=== PATIENT | female | born 1945 | race Caucasian/White ===

== ENCOUNTER 2018-07-15 21:04 | Observation (INO) ==
--- NOTE | 2018-07-16 00:08 | Internal Med History&Physical ---
<Fatoumata Cee N - Last Filed: 07/16/18 02:21> Date of Encounter: 07/16/18 Time of Encounter: 00:08 Internal Medicine - H&P: HPI Chief complaint: GI bleeding Admitted From: Hospital to Hospital Transfer History of present illness: Ms. Balderrama is a 72 year old female with a history of hypertension, diabetes, hyperlipidemia, breast cancer, atrial fibrillation, and arthritis. She arrived at [facility] as a transfer from [facility] due to acute GI bleed. Patient reports that she noticed the bleeding last night, after she had a bowel movement. She states that her bowel movement was firm, but normal for her. She says that when she returned to the bathroom a few hours later, she had blood "all over me". She presented to the ED when the bleeding continued and occurred in the absence of a bowel movement. She denies any prior similar episodes. She has had external hemorrhoids and has experienced some bleeding with those in the past; however, she states that this bleeding is different. She reports recently going to the bathroom and having a "big glob" of material from her rectum. Laboratory studies performed at [facility] demonstrated Hgb/Hct of 13.9/40.8. Patient was found to have a supratherapeutic INR at 3.47. Stool hemoccult was positive for blood. CT of the abdomen and pelvis demonstrated previous granulomatous infectious disease, surgical absence of gallbladder, and atherosclerosis. Patient was transferred to [facility] for further evaluation and management. ROS is positive for intermittent epigastric pain and nausea over the last few months; however, patient attributes this to having recently started alendronate. She states that it improves after eating. She denies any shortness of breath, chest pain, palpitations, abdominal pain, change in bowel habits, or rectal pain. Patient was seen and evaluated at the bedside. She reports feeling weak and dizzy, which she attributes to not having eaten since 2:30pm. She also reports a slight headache. She reports that she is still having active bleeding from her rectum, but is denies any pain or discomfort associated with this. She denies any other complaints or concerns at this time. Past Med Surg Social Fam HX - Past Medical History Source: patient Medical history: arthritis, atrial fibrillation, cancer (Breast cancer), diabetes, hyperlipidemia, hypertension - Past Surgical History Surgical History: , cancer surgery, cataract, cholecystectomy, pacemaker - Family History Father Hx Family Cardiac Disorders: Yes Hx Family Cancer: Yes (Prostate) Sister Hx Family Endocrine Disorder: Yes (Diabetes) Daughter Living Status: Age at : 43 Hx Family Cancer: Yes (Breast cancer) Internal Medicine - H&P: Meds Acetaminophen w/Cod 300-30 mg [Tylenol w/Codeine #3] 1 each PO BID 07/16/18 [History] Alendronate Sodium [Fosamax] 70 mg PO QWEEK 07/16/18 [History] Aspirin 81 mg PO DAILY 07/16/18 [History] Calcium Carbonate/Vitamin D3 [Calcium 600-Vit D3 800 Tablet] 1 each PO BID 07/16/18 [History] Fluticasone Propionate Nasal [Flonase] 1 spray DAILY 07/16/18 [History] Gemfibrozil 600 mg PO BID 07/16/18 [History] Lovastatin 80 mg PO QPM 07/16/18 [History] Potassium Chloride 10 meq PO BID 07/16/18 [History] Triamterene/HCTZ 37.5/25mg [Dyazide] 1 each PO DAILY 07/16/18 [History] Warfarin Sodium 5 mg PO 07/16/18 [History] Allergy/AdvReac Type Severity Reaction Status Date / Time adhesive tape Allergy Unknown See Verified 07/16/18 01:33 Comments celecoxib [From Celebrex] AdvReac Unknown See Verified 07/16/18 01:34 Comments simvastatin [From Zocor] AdvReac Unknown See Verified 07/16/18 01:34 Comments All Systems PM: A 10-system review of systems was performed and is negative for pertinent findings except as documented above in the HPI. - Constitutional Exam: GENERAL: Pleasant elderly female in no acute distress. She is resting comfortably in bed. HEENT: Atraumatic and normocephalic. Oral mucosa moist. NECK: Soft and nontender. No thyromegaly or lymphadenopathy. CARDIOVASCULAR: Irregular rate and rhythm. S1 and S2 present. No murmurs, gallops, or rubs. RESPIRATORY: CTA bilaterally. Chest rises and falls symmetrically with respirations. No accessory muscle use noted. GASTROINTESTINAL: Active bowel sounds x 4 quadrants. Abdomen is soft, nontender, and nondistended. EXTREMITIES: No clubbing, cyanosis, or edema. Scattered bruising present on left hip. SKIN: Warm, dry, and intact. NEUROLOGIC: Patient is cooperative and answers questions appropriately. No apparent focal deficits. Internal Med - H&P Results - Labs CBC & Chem 7: 07/16/18 00:28 07/16/18 00:28 - Assessment and plan (1) GI bleed Current Visit: Yes Status: Acute Assessment and plan: Stool hemoccult performed at [facility] was positive for blood. Patient does have hemorrhoids; however, she states that the bleeding she is experiencing is not what she has experienced in the past with hemorrhoids. Initial laboratory studies performed at the outside ED showed hemoglobin and hematocrit of 13.9 and 40.8, respectively. Patient does report some weakness and dizziness at this time; however, she states that she has not eaten since approximately 2:30pm. She denies any rectal or abdominal pain. Suspect lower GI source due to presence of bright red blood. - D5 0.45% sodium chloride @ 100mL/hr - Hemoglobin and hematocrit Q4H - Repeat PT/INR with AM labs - Blood type and screen pending - GI evaluation pending Qualifiers: GI bleed type/associated pathology: unspecified gastrointestinal hemorrhage type Qualified Code(s): K92.2 - Gastrointestinal hemorrhage, unspecified (2) Atrial fibrillation Current Visit: Yes Status: Acute Assessment and plan: Patient has a history of atrial fibrillation. Heart rate is WNL at 85bpm. - Telemetry monitoring - Hold warfarin secondary to supratherapeutic INR and active bleed Qualifiers: Atrial fibrillation type: chronic Qualified Code(s): I48.2 - Chronic atrial fibrillation (3) Diabetes Current Visit: Yes Status: Acute Assessment and plan: Patient's home medication regimen is gemfibrozil 600mg BID. - NPO diet pending GI evaluation in the morning - Accuchecks Q6H - Low-dose corrective sliding-scale insulin Q6H PRN Qualifiers: Diabetes mellitus type: type 2 Diabetes mellitus terminal gauger supervisor insulin use: without detention use Diabetes mellitus complication status: with unspecified complications Qualified Code(s): E11.8 - Type 2 diabetes mellitus with unspecified complications (4) DVT prophylaxis Current Visit: Yes Status: Acute Assessment and plan: -SCDs (5) Supratherapeutic INR Current Visit: Yes Status: Acute Assessment and plan: PT/INR based on outside laboratory studies was elevated at 40.8 and 3.47, respectively. Patient also had an elevated aPTT at 69. - Hold warfarin - Repeat PT/INR pending - Consider administration of FFP or PCC if patient has evidence of active hemorrhage - Time Spent With Patient Total time spent is greater than 50% in coordination of care (as documented) at patient's floor/unit and/or counseling patient: <Radha Slater - Last Filed: 07/16/18 02:30> Internal Medicine - H&P: HPI History of present illness: Ms. Balderrama is a 72 year old female All Systems PM: A 10-system review of systems was performed and is negative for pertinent findings except as documented above in the HPI. - Constitutional Vitals: Temp Pulse Resp BP Pulse Ox 97.6 F 85 15 137/86 93 07/16/18 00:13 07/16/18 00:13 07/16/18 00:13 07/16/18 00:13 07/16/18 00:13 Internal Med - H&P Results - Labs CBC & Chem 7: 07/16/18 00:28 07/16/18 00:28 Labs: Short CBC 07/16/18 Range/Units 00:28 WBC 5.9 (4.3-11.1) K/mcL Hgb 14.1 (11.5-15.4) g/dL Hct 40.6 (35.3-44.9) % Plt Count 185 (140-400) K/mcL Neutrophils # 3.6 (1.6-8.9) K/mcL BMP 07/16/18 00:28 Sodium 139 Potassium 3.4 L Chloride 102 Carbon Dioxide 27 BUN 30 H Creatinine 0.73 Glucose 116 H Calcium 10.0 Liver Function 07/16/18 Range/Units 00:28 Total Bilirubin 0.8 (0.3-1.0) mg/dL AST 21 (13-39) Units/L ALT 15 (7-52) Units/L Alkaline Phosphatase 75 (34-104) Units/L Albumin 4.3 (3.5-5.7) g/dL - Assessment and plan (1) GI bleed Current Visit: Yes Status: Acute Qualifiers: GI bleed type/associated pathology: unspecified gastrointestinal hemorrhage type Qualified Code(s): K92.2 - Gastrointestinal hemorrhage, unspecified (2) Diabetes Current Visit: Yes Status: Acute Qualifiers: Diabetes mellitus type: type 2 Diabetes mellitus terminal gauger supervisor insulin use: without detention use Diabetes mellitus complication status: with unspecified complications Qualified Code(s): E11.8 - Type 2 diabetes mellitus with unspecified complications (3) DVT prophylaxis Current Visit: Yes Status: Acute (4) Atrial fibrillation Current Visit: Yes Status: Acute Qualifiers: Atrial fibrillation type: chronic Qualified Code(s): I48.2 - Chronic atrial fibrillation (5) Supratherapeutic INR Current Visit: Yes Status: Acute - Time Spent With Patient Total time spent is greater than 50% in coordination of care (as documented) at patient's floor/unit and/or counseling patient: - Attending Attestation Patient seen and examined. Chart reviewed. Case discussed with resident. Agree with assessment and plan. Patient being admitted for suspected lower GI bleed in the setting of atrial fibrillation on Coumadin with a supratherapeutic INR. Currently hemodynamically stable. Her H&H appears to be stable. Keep nothing by mouth. Hold warfarin. GI consult for the morning.
[2018-07-16 00:42] LABS: Basophils % 0.5 %; Eosinophils # 0.1 K/mcL (0.0-0.6); Eosinophils % 2.2 %; Hematocrit 40.6 % (35.3-44.9); Hemoglobin 14.1 g/dL (11.5-15.4); Immature Granulocytes % 0.3 % (0-4); Lymphocytes # 1.6 K/mcL (0.6-4.6); Lymphocytes % 26.3 %; Mean Corpuscular HGB Conc 34.7 g/dL (31.6-35.5); Mean Corpuscular Hemoglobin 29.6 pg (28.0-33.3); Mean Corpuscular Volume 85.1 fL (83.0-100.0); Mean Platelet Volume 10.5 fL (9.4-12.4); Monocytes # 0.6 K/mcL (0.0-1.3); Monocytes % 10.4 %; Neutrophils # 3.6 K/mcL (1.6-8.9); Platelet Count 185 K/mcL (140-400); Red Blood Count 4.77 M/mcL (3.82-4.97); Red Cell Distribution Width 13.1 % (11.5-14.5); Segmented Neutrophils % 60.3 %
[2018-07-16 00:49] LABS: INR 3.1; Prothrombin Time 35.1 Seconds (9.4-12.1)
[2018-07-16 00:52] LABS: Activated Partial Thrombo Time 72.2 Seconds (26.0-36.0)
[2018-07-16] MEDS ORDERED: Naloxone 0.4 MG/ML INJ IVP PRN (00:56)
[2018-07-16] MEDS ORDERED: *HR* Dextrose 50 % in Water (Syg) 50 ML SYRINGE IVP PRN (00:58)
[2018-07-16] MEDS ORDERED: D5% in Water 1,000 ML IVC PRN (00:58)
[2018-07-16] MEDS ORDERED: Dextrose Gel 15 GM/37.5 ML TUBE PO PRN ×2 (00:58)
[2018-07-16 00:59] LABS: Alanine Aminotransferase 15 Units/L (7-52); Albumin 4.3 g/dL (3.5-5.7); Albumin/Globulin Ratio 1.8 (1.1-2.2); Alkaline Phosphatase 75 Units/L (34-104); Aspartate Amino Transferase 21 Units/L (13-39); BUN/Creatinine Ratio 41 (6-26); Bilirubin,Total 0.8 mg/dL (0.3-1.0); Blood Urea Nitrogen 30 mg/dL (8-23); Carbon Dioxide 27 mEq/L (23-29); Chloride 102 mEq/L (98-107); Globulin 2.4 g/dL (2.4-3.5); Glucose 116 mg/dL (70-105); Osmolality,Calculated 295 (280-300); Potassium 3.4 mEq/L (3.5-5.1); Sodium 139 mEq/L (136-145); Total Protein 6.7 g/dL (6.4-8.9); eGFR For Non-African Americans > 60 (> 60)
[2018-07-16] MEDS ORDERED: Potassium Chloride 40 MEQ, Lidocaine 1% 2 ML in D5% in Water 500 ML IVPB ONE (01:01)
[2018-07-16] MEDS: D5% in 0.45% NACL 1,000 ML IVC SCH ×2 (01:39→19:25)
[2018-07-16] MEDS: Insulin LISPRO 300 UNITS/3 ML VIAL SQ SCH ×3 (05:29→19:25)
[2018-07-16 05:34] LABS: Hematocrit 39.3 % (35.3-44.9); Hemoglobin 13.4 g/dL (11.5-15.4)
[2018-07-16 05:43] LABS: INR 2.7; Prothrombin Time 30.9 Seconds (9.4-12.1)
[2018-07-16 05:46] LABS: Activated Partial Thrombo Time 62.7 Seconds (26.0-36.0)
--- NOTE | 2018-07-16 07:56 | Internal Med Progress Note ---
<Tal Mercado - Last Filed: 07/16/18 12:59> Hospitalist Progress Note - Exam Vitals: Temp Pulse Resp BP Pulse Ox 96.2 F L 60 15 137/66 96 07/16/18 08:48 07/16/18 08:48 07/16/18 08:48 07/16/18 08:48 07/16/18 08:48 - Assessment and Plan (1) GI bleed Current Visit: Yes Status: Acute (2) Diabetes Current Visit: Yes Status: Acute (3) Atrial fibrillation Current Visit: Yes Status: Acute (4) Supratherapeutic INR Current Visit: Yes Status: Acute (5) Hypokalemia Current Visit: Yes Status: Acute (6) Osteoporosis Current Visit: No Status: Chronic - Time Spent with Patient Total time spent is greater than 50% in coordination of care (as documented) at patient's floor/unit and/or counseling patient: Internal Medicine: Result - Labs CBC & Chem 7: 07/16/18 08:38 07/16/18 00:28 Labs: Short CBC 07/16/18 07/16/18 07/16/18 Range/Units 00:28 04:52 08:38 WBC 5.9 (4.3-11.1) K/mcL Hgb 14.1 13.4 10.5 L D (11.5-15.4) g/dL Hct 40.6 39.3 31.9 L (35.3-44.9) % Plt Count 185 (140-400) K/mcL Neutrophils # 3.6 (1.6-8.9) K/mcL BMP 07/16/18 00:28 Sodium 139 Potassium 3.4 L Chloride 102 Carbon Dioxide 27 BUN 30 H Creatinine 0.73 Glucose 116 H Calcium 10.0 Liver Function 07/16/18 Range/Units 00:28 Total Bilirubin 0.8 (0.3-1.0) mg/dL AST 21 (13-39) Units/L ALT 15 (7-52) Units/L Alkaline Phosphatase 75 (34-104) Units/L Albumin 4.3 (3.5-5.7) g/dL - ABG Interpretation ABG results: PT/INR, D-dimer PT 30.9 Seconds (9.4-12.1) H 07/16/18 04:52 Consult Discharge Plan - Plan Referrals: Sepideh Ta DO [Primary Care Provider] - - Attending Attestation I examined this patient and my medical decision-making was reviewed with the Resident Physician on 07/16/18. I agree with the documented findings, dis position and treatment plan as described except to the extent set forth below. Ms Balderrama was placed in observation earlier today for acute LGI bleed. She remains moderate to high risk. Ms Balderrama is feeling OK. Less bleeding now. No CP or SOB. No cough. No abd pain. GI to do endoscopy tomorrow. Exam Alert Comfortable Mucus membranes dry Heart not tachy No wheeze abd soft I/P 1. LGI bleed 2. Anemia due to blood loss (acute) Further diagnoses and plan as above Endoscopy tomorrow. <Christophe Friedman - Last Filed: 07/16/18 16:03> Hospitalist Progress Note - Encounter Date of Encounter: 07/16/18 Time of Encounter: 10:30 - Subjective Interval History: Patient seen and examined resting comfortably in bed. Patient reports bright red blood in rectum has decreased in severity since arrival from [facility]. Patient denies current abdominal pain. She reports taking Alendronate caused abdominal pain in the past. Patient examined with nurse at bedside. Awaiting GI evaluation. - Exam Vitals: Temp Pulse Resp BP Pulse Ox 98.1 F 65 15 124/65 92 07/16/18 04:05 07/16/18 04:05 07/16/18 04:05 07/16/18 04:05 07/16/18 04:05 Exam: General: Alert and oriented 3, lying in bed in no acute distress Skin: warm and dry, pale, no rash, no lesions. HEENT: EOMI, pupils equal, round and reactive. Cardiovascular: Normal S1 & S2, no rubs, murmurs or gallops. No JVD. Pulse regular. Lungs: Normal breath sounds, no wheezes or crackles. Abdomen: Soft, non-tender, positive bowel sounds, no guarding Rectal: External hemorrhoid visualized with surrounding dry blood, no active oozing, (examined with Tish HERNANDEZ frame polisher at bedside) Extremities: No deformity, no edema or tenderness, no numbness; no joint swelling or clubbing. Neurological:Normal cognition and motor skills. Pulses:Carotid and radial pulses normal +2. - Assessment and Plan (1) GI bleed Current Visit: Yes Status: Acute Assessment and Plan: Stool hemoccult performed at [facility] was positive for blood. Patient does have history of hemorrhoids; Initial laboratory studies performed at the outside ED showed hemoglobin and hematocrit of 13.9 and 40.8, respectively. Patient does report some weakness and dizziness at this time; however, she states that she has not eaten since approximately 2:30pm. She denies any rectal or abdominal pain. Suspect lower GI source due to presence of bright red blood. D5 0.45% sodium chloride @ 100mL/hr Trend Hemoglobin and hematocrit Vitamin K and FFP given due to possible need for intervention during colonoscopy Blood type and screen completed Continue PPI IV GI evaluation complete, anticipate bowel prep tonight and colonoscopy tomorrow (2) Supratherapeutic INR Current Visit: Yes Status: Acute Assessment and Plan: PT/INR based on outside laboratory studies was elevated at 40.8 and 3.47, respectively. Patient also had an elevated aPTT at 69. Held warfarin Repeat PT/INR 30/ 2.7 Given FFP and vitamin K due to evidence of active hemorrhage We will need colonoscopy, further management per GI (3) Atrial fibrillation Current Visit: Yes Status: Chronic Assessment and Plan: Patient has a history of atrial fibrillation. Heart rate is WNL at 85 bpm. Telemetry monitoring Hold warfarin secondary to supratherapeutic INR and active bleed (4) Osteoporosis Current Visit: No Status: Chronic Assessment and Plan: Patient takes Alendronate at home for osteoporosis, was started by oncologist Patient reports taking alendronate early in the morning 30 minutes before eating and associated abdominal pain Hold Alendronate secondary to acute abdominal symptoms Outpatient management (5) Breast cancer, right breast Current Visit: No Status: Chronic Assessment and Plan: Status post right mastectomy, patient denies previous radiation or chemotherapy Continue outpatient monitoring (6) Diabetes Current Visit: Yes Status: Acute Assessment and Plan: Patient's home medication regimen is gemfibrozil 600mg BID. Clear liquid diet today, nothing by mouth after midnight for colonoscopy tomorrow Accuchecks Q6H Continue Low-dose corrective sliding-scale insulin Q6H PRN (7) Hypokalemia Current Visit: Yes Status: Acute Assessment and Plan: Potassium given overnight, magnesium level within normal limits Continue to monitor DVT Prophylaxis: SCDs - Time Spent with Patient Total time spent is greater than 50% in coordination of care (as documented) at patient's floor/unit and/or counseling patient: Internal Medicine: Result - Labs CBC & Chem 7: 07/16/18 08:38 07/16/18 00:28 Labs: Short CBC 07/16/18 07/16/18 Range/Units 00:28 04:52 WBC 5.9 (4.3-11.1) K/mcL Hgb 14.1 13.4 (11.5-15.4) g/dL Hct 40.6 39.3 (35.3-44.9) % Plt Count 185 (140-400) K/mcL Neutrophils # 3.6 (1.6-8.9) K/mcL BMP 07/16/18 00:28 Sodium 139 Potassium 3.4 L Chloride 102 Carbon Dioxide 27 BUN 30 H Creatinine 0.73 Glucose 116 H Calcium 10.0 Liver Function 07/16/18 Range/Units 00:28 Total Bilirubin 0.8 (0.3-1.0) mg/dL AST 21 (13-39) Units/L ALT 15 (7-52) Units/L Alkaline Phosphatase 75 (34-104) Units/L Albumin 4.3 (3.5-5.7) g/dL - ABG Interpretation ABG results: PT/INR, D-dimer PT 30.9 Seconds (9.4-12.1) H 07/16/18 04:52 <Tal Mercado - Last Filed: 07/16/18 12:59> (1) GI bleed Qualifiers: GI bleed type/associated pathology: unspecified gastrointestinal hemorrhage type Qualified Code(s): K92.2 - Gastrointestinal hemorrhage, unspecified (2) Diabetes Qualifiers: Diabetes mellitus type: type 2 Diabetes mellitus intake counselor insulin use: without intake counselor use Diabetes mellitus complication status: with unspecified complications Qualified Code(s): E11.8 - Type 2 diabetes mellitus with unspecified complications (3) Atrial fibrillation Qualifiers: Atrial fibrillation type: chronic Qualified Code(s): I48.2 - Chronic atrial fibrillation (6) Osteoporosis Qualifiers: Osteoporosis type: other Presence of current pathological fracture: unspecified Qualified Code(s): M81.8 - Other osteoporosis without current pathological fracture <Christophe Friedman - Last Filed: 07/16/18 16:03> (1) GI bleed Qualifiers: GI bleed type/associated pathology: unspecified gastrointestinal hemorrhage type Qualified Code(s): K92.2 - Gastrointestinal hemorrhage, unspecified (3) Atrial fibrillation Qualifiers: Atrial fibrillation type: chronic Qualified Code(s): I48.2 - Chronic atrial fibrillation (4) Osteoporosis Qualifiers: Osteoporosis type: other Presence of current pathological fracture: unspecifi ed Qualified Code(s): M81.8 - Other osteoporosis without current pathological fracture (5) Breast cancer, right breast Qualifiers: Breast location: unspecified site of breast Estrogen receptor status: unspecified Patient sex: female Qualified Code(s): C50.911 - Malignant neoplasm of unspecified site of right female breast (6) Diabetes Qualifiers: Diabetes mellitus type: type 2 Diabetes mellitus intake counselor insulin use: without intake counselor use Diabetes mellitus complication status: with unspecified complications Qualified Code(s): E11.8 - Type 2 diabetes mellitus with unspecified complications
[2018-07-16 08:48] LABS: Hematocrit 31.9 % (35.3-44.9)
[2018-07-16 08:57] LABS: Hemoglobin 10.5 g/dL (11.5-15.4)
[2018-07-16 11:04] LABS: Magnesium 1.9 mg/dL (1.6-2.6)
--- NOTE | 2018-07-16 14:27 | Gastroenterology Consult Note ---
Date of Encounter: 07/16/18 Time of Encounter: 10:15 - Assessment and plan (1) GI bleed Status: Acute Assessment and plan: Plan colonoscopy tomorrow. Just informed this morning. Qualifiers: GI bleed type/associated pathology: anorectal hemorrhage Qualified Code(s): K62.5 - Hemorrhage of anus and rectum (2) Atrial fibrillation Status: Chronic Qualifiers: Atrial fibrillation type: chronic Qualified Code(s): I48.2 - Chronic atrial fibrillation (3) Breast cancer, right breast Status: Chronic Assessment and plan: Stable Qualifiers: Breast location: unspecified site of breast Estrogen receptor status: unspecified Patient sex: female Qualified Code(s): C50.911 - Malignant neoplasm of unspecified site of right female breast (4) Diabetes Status: Chronic Assessment and plan: Per internal medicine service Qualifiers: Diabetes mellitus type: type 2 Diabetes mellitus group home insulin use: without long term care administrator use Diabetes mellitus complication status: without comp lication Qualified Code(s): E11.9 - Type 2 diabetes mellitus without comp lications - Time Spent With Patient Total time spent is greater than 50% in coordination of care (as documented) at patient's floor/unit and/or counseling patient: 25 - 35 minutes GI History of Present Illness - Data of Consult Consult date: 07/16/18 Requesting Physician: Tal Mercado DO - Consult Narrative Reason for consult: Hematochezia, drop in hemoglobin History of present illness: Ms. Balderrama is a 72 year old female who presented in [facility] with rectal bleeding off and on and was then transferred to [place] due to "non availability of a mica laminating machine feeder at site" The blood seems bright red bleeding mainly in the tissue paper and in the toilet. Appears hemarrhoidal in origin at least clinically but, patient will need a colonoscopy. No family hx of colon cancer /polyps. No hx of chest pain or syncope or dizziness. No UGI symptoms. Past Med Surg Social Fam HX - Past Medical History Medical history: arthritis, atrial fibrillation, cancer (Breast cancer), diabetes, hyperlipidemia, hypertension Psychiatric history: no psych history - Past Surgical History Surgical History: , cancer surgery, cataract, cholecystectomy, pacemaker - Social History Smoking Status: Never smoker Smokeless Tobacco Status: No Alcohol use: none Drug use: none - Family History Daughter Living Status: Age at : 43 Hx Family Cancer: Yes (Breast cancer) Father Hx Family Cardiac Disorders: Yes Hx Family Cancer: Yes (Prostate) Sister Hx Family Endocrine Disorder: Yes (Diabetes) - Gastrointestinal Gastrointestinal: Present: hematochezia - Cardiovascular Cardiovascular ROS: Present: as per HPI - Respiratory Respiratory IM: Present: as per HPI Additional Comment: Negative - Genitourinary Additional Comment: Negative - Neurological ROS Neurological GI: Present: as per HPI - Constitutional Vitals: Temp Pulse Resp BP Pulse Ox 96.2 F L 60 15 137/66 96 07/16/18 08:48 07/16/18 08:48 07/16/18 08:48 07/16/18 08:48 07/16/18 08:48 - Head Head exam: Present: atraumatic Additional comments: Mild pallor - GI/Abdominal GI/Abdominal exam: Present: normal bowel sounds, soft Additional comments: No hepatosplenomegaly - Rectal Rectal exam: Present: deferred Additional comments: Deferred to colonoscopy. Results - Labs CBC & Chem 7: 07/17/18 06:13 07/17/18 06:13 Labs: Last Result Calcium 10.0 mg/dL (8.6-10.3) 07/16/18 00:28 Entire Visit Hgb 10.5 g/dL (11.5-15.4) L D 07/16/18 08:38 Hct 31.9 % (35.3-44.9) L 07/16/18 08:38 PT 30.9 Seconds (9.4-12.1) H 07/16/18 04:52 Total Bilirubin 0.8 mg/dL (0.3-1.0) 07/16/18 00:28 AST 21 Units/L (13-39) 07/16/18 00:28 ALT 15 Units/L (7-52) 07/16/18 00:28 - ABG ABG results: PT/INR, D-dimer PT 30.9 Seconds (9.4-12.1) H 07/16/18 04:52 Consult Discharge Plan - Plan Instructions: Colonoscopy (DC) Referrals: Sepideh Ta DO [Primary Care Provider] -
[2018-07-16] MEDS: Pantoprazole 40 MG VIAL IVP SCH ×2 (15:58→17:42)
[2018-07-16 16:28] LABS: Hematocrit 36.3 % (35.3-44.9)
[2018-07-16 16:50] LABS: Hemoglobin 12.8 g/dL (11.5-15.4)
[2018-07-16] MEDS ORDERED: SODIUM CHLORIDE/NAHCO3/KCL/PEG 4,000 ML SOLN.RECON PO ONE (17:00)
[2018-07-16] MEDS ORDERED: D5% in 0.45% NACL w KCl 20 MEQ/1,000 ML MLS IVC SCH (18:00)
[2018-07-16] MEDS ORDERED: Polyethylene Glycol 3350 255 GM POWDER PO ONE (21:00)
--- NOTE | 2018-07-16 23:09 | Event Note ---
Date of Encounter: 07/16/18 Time of Encounter: 22:33 Alerted by pts. nurse MARY Palacios that patient was admitted for potential GI bleed and is currently on bowel prep for colonoscopy scheduled in the a.m. In reviewing patient's chart it was found the patient not received ordered FFP this morning. Order placed due to INR greater than 1.7 and patient having invasive procedure. Current INR 2.7 trending down from 3.1. Patient normally takes warfarin which is been discontinued due to bleeding risk. Called blood bank and spoke with Spencer who confirmed patient had not received FFP which was still waiting for patient. Discussed pt. and situation w/Dr. Barnhart who recommended giving the FFP per order. Nurse instructed to administer FFP and place note regarding incident. Pt. to be monitored closely overnight.
[2018-07-16] MEDS ORDERED: 0.9 % Sodium Chloride 250 ML ONE (23:33)
[2018-07-17] MEDS: Insulin LISPRO 300 UNITS/3 ML VIAL SQ SCH ×3 (00:42→11:47)
[2018-07-17] MEDS: Pantoprazole 40 MG VIAL IVP SCH (05:17)
[2018-07-17 06:41] LABS: Hemoglobin 12.7 g/dL (11.5-15.4); Mean Corpuscular HGB Conc 34.3 g/dL (31.6-35.5); Mean Corpuscular Hemoglobin 29.1 pg (28.0-33.3); Mean Corpuscular Volume 84.9 fL (83.0-100.0); Mean Platelet Volume 10.4 fL (9.4-12.4); Platelet Count 158 K/mcL (140-400); Red Blood Count 4.36 M/mcL (3.82-4.97)
[2018-07-17 06:49] LABS: INR 1.2; Prothrombin Time 13.9 Seconds (9.4-12.1)
[2018-07-17 07:03] LABS: BUN/Creatinine Ratio 23 (6-26); Blood Urea Nitrogen 14 mg/dL (8-23); Calcium 9.1 mg/dL (8.6-10.3); Carbon Dioxide 31 mEq/L (23-29); Chloride 107 mEq/L (98-107); Glucose 112 mg/dL (70-105); Osmolality,Calculated 299 (280-300); Potassium 3.2 mEq/L (3.5-5.1); Sodium 144 mEq/L (136-145); eGFR For Non-African Americans > 60 (> 60)
--- NOTE | 2018-07-17 09:26 | Internal Med Progress Note ---
<Nahomi Gamboa - Last Filed: 07/17/18 13:55> Hospitalist Progress Note - Encounter Date of Encounter: 07/17/18 Time of Encounter: 09:26 - Subjective Interval History: Pt spent last evening doing bowel prep for today's scheduled colonoscopy. She reports tolerating this procedure "as well as can be expected". Pt had colonos copy this afternoon which showed a 13mm "recently bleeding" polyp in her rectum which was resected and had a clip placed to prevent further bleeding. A second 6mm polyp was found in the cecum and was resected. Biopsies are pending. GI recommends 3 year f/u colonoscopy. - Exam Vitals: Temp Pulse Resp BP Pulse Ox 97.6 F 61 14 115/71 97 07/17/18 07:17 07/17/18 07:17 07/17/18 07:17 07/17/18 07:17 07/17/18 07:17 Exam: General: A&O x 3. No acute distress. Geriatric female. Head: atraumatic, normocephalic. ENT: No conjunctival injection, no scleral icterus. Edentulous, left mandibular swelling that is TTP and limits ROM of her jaw due to pain. Neuro: No focal deficits, no speech deficit, no facial droop, mentating well. Pulm: Lungs CTAB A/P. No wheezes, rales, ronchi. Cardio: RRR no m/r/g. Chest not tender to palpation. Abd: Soft, non-distended. Normoactive bowel sounds. No guarding. Non rigid. Extremities: Full ROM, no swelling, edema, dislocations. Skin: warm, dry, intact. No rashes. Psych: Appropriate mood and affect. Answers questions appropriately. Cooperative with exam. - Assessment and Plan (1) GI bleed Status: Acute Assessment and Plan: Admit H&H 12.8 and 36.3 respectively, 12.7 and 37 today Pt has received a unit of FFP and Vitamin K during this admission for possible need for intervention during procedure Trend Hemoglobin and hematocrit Blood type and screen completed Continue PPI IV GI evaluation complete, bowel prep completed last night, colonoscopy planned for 1300 today (2) Diabetes Status: Acute Assessment and Plan: Patient's home medication regimen is gemfibrozil 600mg BID. Advance diet after procedure as tolerated Accuchecks Q6H Continue Low-dose corrective sliding-scale insulin Q6H PRN (3) Atrial fibrillation Status: Chronic Assessment and Plan: Patient has a history of atrial fibrillation. Heart rate is WNL at 61 bpm. Telemetry monitoring Hold warfarin secondary to supratherapeutic INR and active bleed (4) Supratherapeutic INR Status: Acute Assessment and Plan: PT/INR based on outside laboratory studies was elevated at 40.8 and 3.47, respectively. Patient also had an elevated aPTT at 69. Held warfarin Repeat PT/INR 13.9/1.2 Given FFP and vitamin K due to evidence of active hemorrhage colonoscopy planned for today, further management per GI (5) Hypokalemia Status: Acute Assessment and Plan: K+ 3.2 this am, will give 40meq today Potassium given overnight, magnesium level within normal limits Recheck K+ and Mg+ tomorrow morning Continue to monitor (6) Osteoporosis Status: Chronic Assessment and Plan: Patient takes Alendronate at home for osteoporosis, was started by oncologist Patient reports taking alendronate early in the morning 30 minutes before eating and associated abdominal pain Hold Alendronate secondary to acute abdominal symptoms Outpatient management (7) Breast cancer, right breast Status: Chronic Assessment and Plan: Status post right mastectomy, patient denies previous radiation or chemotherapy Continue outpatient monitoring DVT Prophylaxis: SCDs - Time Spent with Patient Total time spent is greater than 50% in coordination of care (as documented) at patient's floor/unit and/or counseling patient: less than 15 minutes Plan of Care Discussed with: patient Internal Medicine: Result - Labs CBC & Chem 7: 07/17/18 06:13 07/17/18 06:13 Labs: Short CBC 07/16/18 07/17/18 Range/Units 16:13 06:13 WBC 5.0 (4.3-11.1) K/mcL Hgb 12.8 D 12.7 (11.5-15.4) g/dL Hct 36.3 37.0 (35.3-44.9) % Plt Count 158 (140-400) K/mcL BMP 07/16/18 07/17/18 00:28 06:13 Sodium 139 144 Potassium 3.4 L 3.2 L Chloride 102 107 Carbon Dioxide 27 31 H BUN 30 H 14 Creatinine 0.73 0.61 Glucose 116 H 112 H Calcium 10.0 9.1 Liver Function 07/16/18 Range/Units 00:28 Total Bilirubin 0.8 (0.3-1.0) mg/dL AST 21 (13-39) Units/L ALT 15 (7-52) Units/L Alkaline Phosphatase 75 (34-104) Units/L Albumin 4.3 (3.5-5.7) g/dL - ABG Interpretation ABG results: PT/INR, D-dimer PT 13.9 Seconds (9.4-12.1) H D 07/17/18 06:13 Consult Discharge Plan - Plan Instructions: Colonoscopy (DC) Referrals: Sepideh Ta DO [Primary Care Provider] - <Tal Mercado - Last Filed: 07/17/18 19:17> Hospitalist Progress Note - Exam Vitals: Temp Pulse Resp BP Pulse Ox 97.8 F 60 16 98/60 93 07/17/18 14:50 07/17/18 14:50 07/17/18 14:50 07/17/18 14:50 07/17/18 14:50 - Assessment and Plan (1) GI bleed Status: Acute (2) Diabetes Status: Chronic (3) Atrial fibrillation Status: Chronic (4) Supratherapeutic INR Status: Resolved (5) Hypokalemia Status: Acute (6) Osteoporosis Status: Chronic (7) Breast cancer, right breast Status: Chronic - Time Spent with Patient Total time spent is greater than 50% in coordination of care (as documented) at patient's floor/unit and/or counseling patient: Internal Medicine: Result - Labs CBC & Chem 7: 07/17/18 06:13 07/17/18 06:13 Labs: Short CBC 07/17/18 Range/Units 06:13 WBC 5.0 (4.3-11.1) K/mcL Hgb 12.7 (11.5-15.4) g/dL Hct 37.0 (35.3-44.9) % Plt Count 158 (140-400) K/mcL BMP 07/17/18 06:13 Sodium 144 Potassium 3.2 L Chloride 107 Carbon Dioxide 31 H BUN 14 Creatinine 0.61 Glucose 112 H Calcium 9.1 - ABG Interpretation ABG results: PT/INR, D-dimer PT 13.9 Seconds (9.4-12.1) H D 07/17/18 06:13 - Attending Attestation Please see discharge summary of this date. <Nahomi Gamboa - Last Filed: 07/17/18 13:55> (1) GI bleed Qualifiers: GI bleed type/associated pathology: unspecified gastrointestinal hemorrhage type Qualified Code(s): K92.2 - Gastrointestinal hemorrhage, unspecified (2) Diabetes Qualifiers: Diabetes mellitus type: type 2 Diabetes mellitus assisted insulin use: without assisted use Diabetes mellitus complication status: with unspecified complications Qualified Code(s): E11.8 - Type 2 diabetes mellitus with unspecified complications (3) Atrial fibrillation Qualifiers: Atrial fibrillation type: chronic Qualified Code(s): I48.2 - Chronic atrial fibrillation (6) Osteoporosis Qualifiers: Osteoporosis type: other Presence of current pathological fracture: unspecified Qualified Code(s): M81.8 - Other osteoporosis without current pathological fracture (7) Breast cancer, right breast Qualifiers: Breast location: unspecified site of breast Estrogen receptor status: unspecified Patient sex: female Qualified Code(s): C50.911 - Malignant neoplasm of unspecified site of right female breast <Tal Mercado - Last Filed: 07/17/18 19:17> (1) GI bleed Qualifiers: GI bleed type/associated pathology: unspecified gastrointestinal hemorrhage type Qualified Code(s): K92.2 - Gastrointestinal hemorrhage, unspecified (2) Diabetes Qualifiers: Diabetes mellitus type: type 2 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 Diabetes mellitus complication status: with unspecified complications Qualified Code(s): E11.8 - Type 2 diabetes mellitus with unspecified complications (3) Atrial fibrillation Qualifiers: Atrial fibrillation type: chronic Qualified Code(s): I48.2 - Chronic atrial fibrillation (6) Osteoporosis Qualifiers: Osteoporosis type: other Presence of current pathological fracture: unspecified Qualified Code(s): M81.8 - Other osteoporosis without current pathological fracture (7) Breast cancer, right breast Qualifiers: Breast location: unspecified site of breast Estrogen receptor status: unspeci fied Patient sex: female Qualified Code(s): C50.911 - Malignant neoplasm of unspecified site of right female breast
[2018-07-17] MEDS ORDERED: *HR* Midazolam HCl 5 MG/5 ML VIAL IVP ONE (11:51)
[2018-07-17] MEDS ORDERED: *HR* FentaNYL (PF) 100 MCG/2 ML VIAL ONE (11:52)
[2018-07-17] MEDS ORDERED: Tetracaine/Benzocaine/Butamben 1 SPRAY AEROSOL MM ONE (12:29)
[2018-07-17] MEDS ORDERED: Simethicone 40 MG/0.6 ML MLS IR ONE (12:29)
[2018-07-17] MEDS ORDERED: *HR* FentaNYL (PF) 100 MCG/2 ML VIAL IVP ONE (12:29)
--- NOTE | 2018-07-17 12:29 | Pre-Sedation Evaluation ---
Pre-sedation evaluation - Pre-sedation checklist Date of procedure: 07/17/18 Recent Vitals: Last Vital Signs Temp 97.8 F 07/17/18 12:00 Pulse 59 07/17/18 12:00 Resp 16 07/17/18 12:00 BP 180/82 07/17/18 12:00 Pulse Ox 97 07/17/18 12:00 ASA Classification *see protocol: CLASS III-Severe systemic disease
[2018-07-17] MEDS: *HR* Midazolam HCl 5 MG/5 ML VIAL IVP ONE ×2 (12:37→12:38)
--- NOTE | 2018-07-17 14:00 | Discharge Summary ---
<Nahomi Gamboa - Last Filed: 07/17/18 14:42> - NOTES TO OUTPATIENT PROVIDER Notes to Outpatient Provider: Ms Balderrama needs a f/u colonoscopy in 3 years. Consider alterantive treatment for osteoporosis from alendronate as she is having abdominal symptoms with this medication. Orders not resulted at time of discharge: Pending orders 07/17/18 13:01 Surgical Pathology [PTH] Routine 07/18/18 04:00 Basic Metabolic Panel AM 0400 Complete Blood Count [HEME] AM 0400 Magnesium AM 0400 Date of Encounter: 07/17/18 Time of Encounter: 13:56 - Discharge Diagnosis (1) GI bleed Priority: Primary Status: Acute Assessment and Plan: Pt's H&H was stable during this admission. Colonoscopy revealed 15mm polyp in the rectum with signs of recent bleeding which was removed with hot snare and clipped. An additional 6mm polyp in the cecum was also removed with hot snare. F/u colonoscopy is recommended in 3 years. Pt received 1 unit FFP during her admission for supratherapeutic INR of 3.1. Repeat INR was 1.2. Qualifiers: GI bleed type/associated pathology: unspecified gastrointestinal hemorrhage type Qualified Code(s): K92.2 - Gastrointestinal hemorrhage, unspecified (2) Diabetes Priority: Secondary Status: Chronic Assessment and Plan: Patient's home medication regimen is gemfibrozil 600mg BID. 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 Heart rate is WNL at 61 bpm. Telemetry monitoring Restart warfarin with close outpt f/u for INR monitoring Qualifiers: Atrial fibrillation type: chronic Qualified Code(s): I48.2 - Chronic atrial fibrillation (4) Supratherapeutic INR Priority: Secondary Status: Resolved Assessment and Plan: Repeat INR 1.2 this morning, restart warfarin with close outpt f/u to maitain therapeutic INR (5) Hypokalemia Priority: Secondary Status: Acute Assessment and Plan: K+ this AM was 3.2 - 40meQ given PO - outpt follow up to ensure proper levels are maintained (6) Osteoporosis Priority: Secondary Status: Chronic Assessment and Plan: Patient takes Alendronate at home for osteoporosis, was started by oncologist Patient reports taking alendronate early in the morning 30 minutes before eating and associated abdominal pain Hold Alendronate secondary to acute abdominal symptoms Outpatient management Qualifiers: Osteoporosis type: other Presence of current pathological fracture: unspecified Qualified Code(s): M81.8 - Other osteoporosis without current pathological fracture (7) Breast cancer, right breast Priority: Secondary Status: Chronic Assessment and Plan: Status post right mastectomy, patient denies previous radiation or chemotherapy Continue outpatient monitoring Qualifiers: Breast location: unspecified site of breast Estrogen receptor status: unspecified Patient sex: female Qualified Code(s): C50.911 - Malignant neoplasm of unspecified site of right female breast Hospital course: Ms. Balderrama is a 72 year old female that was a transfer from an outpt facility for suspected LGIB. She completed bowel prep overnight 07/16-07/17 and underwent colonoscopy on 07/17. The colonoscopy revealed one 15mm polyp in the rectum with signs of recent bleeding which was removed with hot snare and clipped to prevent further bleeding. A second polyp was identified in the cecum of 6mm which was also hot snared. Follow-up colonoscopy is recommended in three years. Pt's H&H was stable during her admission and her vitals remained stable. Pt feels safe to be discharged at this point. Pt was given an opportunity to ask questions and all of her concerns were addressed. Discharge discussed with: patient - Time Spent with Patient Total time spent providing and/or coordinating discharge services: Less than 30 minutes - Discharge Medications Home Medications: Acetaminophen w/Cod 300-30 mg [Tylenol w/Codeine #3] 1 each PO BID 07/16/18 [History] Alendronate Sodium [Fosamax] 70 mg PO QWEEK 07/16/18 [History] Calcium Carbonate/Vitamin D3 [Calcium 600-Vit D3 800 Tablet] 1 each PO BID 07/16/18 [History] Gemfibrozil 600 mg PO BID 07/16/18 [History] Lovastatin 80 mg PO QPM 07/16/18 [History] Potassium Chloride 10 meq PO BID 07/16/18 [History] RX: Aspirin 81 mg PO DAILY 07/16/18 [History] RX: Fluticasone Propionate Nasal [Flonase] 1 spray DAILY 07/16/18 [History] RX: Triamterene/HCTZ 37.5/25mg [Dyazide] 1 each PO DAILY 07/16/18 [History] Warfarin Sodium 5 mg PO SUMOTUWETHFR 07/16/18 [History] Warfarin [Coumadin] 2.5 mg PO SA 07/16/18 [History] Allergies/Adverse Reactions: Allergy/AdvReac Type Severity Reaction Status Date / Time adhesive tape Allergy Unknown See Verified 07/16/18 01:33 Comments celecoxib [From Celebrex] AdvReac Unknown See Verified 07/16/18 01:34 Comments simvastatin [From Zocor] AdvReac Unknown See Verified 07/16/18 01:34 Comments Date of admission: 07/15/18 23:46 Primary care physician: Sepideh Ta DO Consults: 07/16/18 01:54 Consult to Pastoral Services [CONS] Routine Comment: 07/16/18 10:39 Consult to Gastroenterology [CONS] Routine Consulting Provider: Gastroenter[facility] [place] Reason for Consult: BRB per rectum, drop in HGB from 13.4 to 10.5, h/o hemorrhoids, Coumadin held Time Notified: 10:40 Call Completed: Yes - Constitutional Vitals: Temp Pulse Resp BP Pulse Ox 98.2 F 61 16 132/78 93 07/17/18 13:40 07/17/18 13:40 07/17/18 13:40 07/17/18 13:40 07/17/18 13:40 Exam: General: A&O x 3. No acute distress. Geriatric female. Head: atraumatic, normocephalic. ENT: No conjunctival injection, no scleral icterus. Edentulous, left mandibular swelling that is TTP and limits ROM of her jaw due to pain. Neuro: No focal deficits, no speech deficit, no facial droop, mentating well. Pulm: Lungs CTAB A/P. No wheezes, rales, ronchi. Cardio: RRR no m/r/g. Chest not tender to palpation. Abd: Soft, non-distended. Normoactive bowel sounds. No guarding. Non rigid. Extremities: Full ROM, no swelling, edema, dislocations. Skin: warm, dry, intact. No rashes. Psych: Appropriate mood and affect. Answers questions appropriately. Cooperative with exam. - Patient Status Disposition: Home, Self-Care Condition: Good Functional capacity at discharge: independent ambulation Overall status at discharge: patient is back to baseline - Discharge Instructions Instructions: Colonoscopy (DC) Follow Up With: Sepideh Ta DO [Primary Care Provider] - - Diet and Activity Activity: increase activity as tolerated Diet: advance to your usual diet <Tal Mercado - Last Filed: 07/17/18 19:22> Orders not resulted at time of discharge: Pending orders 07/17/18 13:01 Surgical Pathology [PTH] Routine - Discharge Diagnosis (1) GI bleed Status: Acute Qualifiers: GI bleed type/associated pathology: anorectal hemorrhage Qualified Code(s): K62.5 - Hemorrhage of anus and rectum (2) Diabetes Status: Chronic Qualifiers: Diabetes mellitus type: type 2 Diabetes mellitus snf insulin use: without snf use Diabetes mellitus complication status: without complication Qualified Code(s): E11.9 - Type 2 diabetes mellitus without complications (3) Atrial fibrillation Status: Chronic Qualifiers: Atrial fibrillation type: chronic Qualified Code(s): I48.2 - Chronic atrial fibrillation (4) Supratherapeutic INR Status: Resolved (5) Hypokalemia Status: Resolved (6) Osteoporosis Status: Chronic Qualifiers: Osteoporosis type: other Presence of current pathological fracture: without current pathological fracture Qualified Code(s): M81.8 - Other osteoporosis without current pathological fracture (7) Breast cancer, right breast Status: Chronic Qualifiers: Breast location: unspecified site of breast Estrogen receptor status: unspecified Patient sex: female Qualified Code(s): C50.911 - Malignant neoplasm of unspecified site of right female breast Hospital course: Ms. Balderrama is a 72 year old female - Time Spent with Patient Total time spent providing and/or coordinating discharge services: Date of admission: 07/15/18 23:46 Primary care physician: Sepideh Ta DO Consults: 07/16/18 01:54 Consult to Pastoral Services [CONS] Routine Comment: 07/16/18 10:39 Consult to Gastroenterology [CONS] Routine Consulting Provider: Gastroenterology [facility] Reason for Consult: BRB per rectum, drop in HGB from 13.4 to 10.5, h/o hemorrhoids, Coumadin held Time Notified: 10:40 Call Completed: Yes - Constitutional Vitals: Temp Pulse Resp BP Pulse Ox 97.8 F 60 16 98/60 93 07/17/18 14:50 07/17/18 14:50 07/17/18 14:50 07/17/18 14:50 07/17/18 14:50 - Attending Attestation I examined this patient and my medical decision-making was reviewed with the Resident Physician on 07/16/18. I agree with the documented findings, disposition and treatment plan as described except to the extent set forth below. Ms Balderrama has been in observation for lower GI bleed. She had colonoscopy to[facility] and found to have bleeding polyp which was removed. She is now afebrile and ready for discharge home. Exam alert Comfortable Mucus membranes dry Heart reg No wheeze Plan D/C home today.
[2018-07-17 14:51] VITALS: BP 107/62
== END 2018-07-17 18:09 | disposition home or self-care (01) ==
LOC: 3ANU → SUATTDRO 23:46
PROVIDERS: ADMIT Internal Medicine; ATTEND Internal Medicine